=== PATIENT | male | born 1955 | race Caucasian/White ===

== ENCOUNTER 2022-11-17 17:30 | Emergency (ER) | payer MEDICARE ==
--- NOTE | 2022-11-17 17:46 | ED ---
General Adult HPI <Calvin Quan - Last Filed: 11/17/22 17:46> <Sanjana Coto - Last Filed: 11/18/22 03:25> - General Stated complaint: Fall Time Seen by Provider: 11/17/22 17:45 - History of Present Illness Initial comments: 67-year-old male presents to ED with a chief complaint of fall. Patient states she was helping a friend move a dresser when his heel hit in object causing him to lose his balance and fall backwards carrying the dresser. States that he landed on his butt. No head injury at this time. Now notes pain of the hip and buttocks. (Calvin Quan) 67-year-old male presenting with chief complaint of fall. Patient was helping move a dresser when he fell backwards and landed on his buttocks. He is having pain in the lower back. Denies any head injury or loss of consciousness. Shakira hernandez is currently on Plavix. No loss of bowel or bladder control or saddle paresthesia. No numbness, tingling, weakness, vision or hearing changes, neck pain, headache, nausea, vomiting, dizziness. (Sanjana Coto) - Related Data Previous Rx's Medication Instructions Recorded HYDROcodone/APAP 7.5-325MG [[place] 1 tab PO Q6HR PRN 3 Days #12 tab 11/17/22 7.5-325] Allergies Allergy/AdvReac Type Severity Reaction Status Date / Time Iodinated Contrast Media Allergy Rash/Hives Verified 11/17/22 17:46 Review of Systems ROS Other: All systems not noted in ROS Statement are negative. <Calvin Quan - Last Filed: 11/17/22 17:46> ROS Other: All systems not noted in ROS Statement are negative. <Sanjana Coto - Last Filed: 11/18/22 03:25> ROS Statement: Those systems with pertinent positive or pertinent negative responses have been documented in the HPI. Past Medical History Past Medical History: Coronary Artery Disease (CAD), Chest Pain / Angina History of Any Multi-Drug Resistant Organisms: None Reported Additional Past Surgical History / Comment(s): Stents x5 Past Psychological History: No Psychological Hx Reported Smoking Status: Current every day smoker Past Alcohol Use History: None Reported Past Drug Use History: None Reported <Calvin Quan - Last Filed: 11/17/22 17:46> General Exam Limitations: no limitations General appearance: alert Neck exam: Present: normal inspection Extremities exam: Present: normal inspection Neurological exam: Present: alert <Calvin Quan - Last Filed: 11/17/22 17:46> Limitations: no limitations General appearance: alert, in no apparent distress Head exam: Present: atraumatic, normocephalic, normal inspection Eye exam: Present: normal appearance, PERRL, EOMI. Absent: periorbital swelling Neck exam: Present: normal inspection, full ROM. Absent: tenderness Respiratory exam: Present: normal lung sounds bilaterally. Absent: respiratory distress, wheezes, rales, rhonchi, stridor Cardiovascular Exam: Present: regular rate, normal rhythm, normal heart sounds. Absent: systolic murmur, diastolic murmur, rubs, gallop, clicks Back exam: Present: normal inspection Neurological exam: Present: alert, oriented X3 Psychiatric exam: Present: normal affect, normal mood Skin exam: Present: warm, dry, intact, normal color. Absent: rash <Sanjana Coto - Last Filed: 11/18/22 03:25> Course Vital Signs 11/17/22 11/17/22 11/17/22 17:43 20:41 22:11 Temperature 98.0 F 98.4 F Pulse Rate 60 67 75 Respiratory 18 20 20 Rate Blood Pressure 122/68 144/73 168/81 O2 Sat by Pulse 98 99 99 Oximetry Medical Decision Making <Calvin Quan - Last Filed: 11/17/22 17:46> <Sanjana Coto - Last Filed: 11/18/22 03:25> - Medical Decision Making Quicknote portion performed. Signed Calvin Quan PA-C (Calvin Quan) Was pt. sent in by a medical professional or institution ([facility], LINE THERAPIST, urgent care, hospital, or custodial...) When possible be specific @ -No Did you speak to anyone other than the patient for history (EMS, parent, family, police, friend...)? What history was obtained from this source @ -No Did you review nursing and triage notes (agree or disagree)? Why? @ -I reviewed and agree with nursing and triage notes Were old charts reviewed (outside hosp., previous admission, EMS record, old EKG, old radiological studies, urgent care reports/EKG's, custodial records)? Report findings @ -No old charts were reviewed Differential Diagnosis (chest pain, altered mental status, abdominal pain women, abdominal pain men, vaginal bleeding, weakness, fever, dyspnea, syncope, headache, dizziness, GI bleed, back pain, seizure, CVA, palpatations, mental health, musculoskeletal)? @ - MDM Differential Back Pain: Strain, zoster, cauda equina syndrome, epidural abscess, vertebral osteomyelitis, discitis, fracture, subluxation, disc herniation, DJD, spinal stenosis, dissection, AAA, pancreatitis, peptic ulcer disease, pyelonephritis, kidney stone this is not meant to be an all-inclusive list. EKG interpreted by me (3pts min.). @ -As above X-rays interpreted by me (1pt min.). @ -No acute processes seen on x-rays of the lumbar spine, pelvis, or sacrum and coccyx CT interpreted by me (1pt min.). 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 These large bone spurs likely presents onto the back wall of the hypopharynx and cervical esophagus. Correlate for any possible associated clinical symptoms. No acute processes seen on lumbar spine CT U/S interpreted by me (1pt. min.). @ -None done What testing was considered but not performed or refused? (CT, X-rays, U/S, labs)? Why? @ -None What meds were considered but not given or refused? Why? @ -None Did you discuss the management of the patient with other professionals (professionals i.e. , PA, LINE THERAPIST, lab, RT, psych nurse, social work case manager, assistant brand manager, teacher, booking police officer, test case developer)? Give summary @ -No Was smoking cessation discussed for >3mins.? @ -No Was critical care preformed (if so, how long)? @ -No Were there social determinants of health that impacted care today? How? (Homelessness, low income, unemployed, alcoholism, drug addiction, transportation, low edu. Level, literacy, decrease access to med. care, halfway, rehab)? @ -No Was there de-escalation of care discussed even if they declined (Discuss DNR or withdrawal of care, Hospice)? DNR status @ -No What co-morbidities impacted this encounter? (DM, HTN, Smoking, COPD, CAD, Cancer, CVA, ARF, Chemo, Hep., AIDS, mental health diagnosis, sleep apnea, morbid obesity)? @ -None Was patient admitted / discharged? Hospital course, mention meds given and route, prescriptions, significant lab abnormalities, going to OR and other pertinent info. @ -67-year-old male presenting with chief complaint of back pain after fall today. He denies headache injury loss of consciousness, he is currently on Plavix. Physical exam was conducted. Patient is given pain medication. X-rays of the lumbar spine pelvis and sacrum and coccyx are negative. Negative CT of the brain and cervical spine as well as lumbar spine. He reports improvement after pain medication. Educated on supportive management at home. Follow-up with PCP. Report back to ER with any new or worsening symptoms. Discussed return parameters and answered all questions. Patient conveyed verbal understanding and agreed to the plan. I discussed this case in detail with my attending Dr. Gibson Undiagnosed new problem with uncertain prognosis? @ -No Drug Therapy requiring intensive monitoring for toxicity (Heparin, Nitro, Insulin, Cardizem)? @ -No Were any procedures done? @ -No Diagnosis/symptom? @ -Mechanical back pain Acute, or Chronic, or Acute on Chronic? @ -Acute Uncomplicated (without systemic symptoms) or Complicated (systemic symptoms)? @ -Uncomplicated Side effects of treatment? @ -No Exacerbation, Progression, or Severe Exacerbation? @ -No Poses a threat to life or bodily function? How? (Chest pain, USA, IA, pneumonia, PE, COPD, DKA, ARF, appy, cholecystitis, CVA, Diverticulitis, Homicidal, Suicidal, threat to staff... and all critical care pts) @ -No (Sanjana Coto) Disposition <Calvin Quan - Last Filed: 11/17/22 17:46> Is patient prescribed a controlled substance at d/c from ED?: No Time of Disposition: 22:05 <Sanjana Coto - Last Filed: 11/18/22 03:25> Clinical Impression: Fall Disposition: HOME SELF-CARE Condition: Good Instructions (If sedation given, give patient instructions): Fall Prevention for Older Adults (ED), Head Injury (ED) Additional Instructions: Follow-up with PCP. Report back to ER with any new or worsening symptoms. Take medication as prescribed. Prescriptions: HYDROcodone/APAP 7.5-325MG [[place] 7.5-325] 1 tab PO Q6HR PRN 3 Days #12 tab PRN Reason: Pain Referrals: Nonstaff,Physician [Primary Care Provider] - 1-2 days
--- NOTE | 2022-11-17 18:31 | XR ---
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 Vertebral body heights a nd alignment are maintained. Facet arthropathy lower lumbar spine. Pelvis: Hips appear symmetric and intact as do the SI joints and pubic symphysis. Pelvic phleboliths. No acut e fracture, subluxation, or dislocation seen. Sacrum and coccyx: No displaced or angulated sacral or coccygeal fracture seen on the lateral view. S mall delineation to the arcuate lines of the sacrum. Some limitation due to overlying bowel gas. IMPRESSION: 1. Lumbar spine: Extensive DISH throughout the visualized spine. No vertebral compression collapse or malalignment. 2. Pelvis: No acute osseous abnormality seen. 3. Sacrum and coccyx: No displaced or angulated tailbone fracture identified.
[2022-11-17 20:45] VITALS: RESP 20
[2022-11-17] MEDS ORDERED: ORPHENADRINE 30 MG/ML 2 ML VIAL IM STA (20:52)
[2022-11-17] MEDS ORDERED: LIDOCAINE 5% PATCH TOPICAL SCH (21:00)
--- NOTE | 2022-11-17 21:51 | CT ---
EXAMINATION TYPE: CT brain sarahine wo con DATE OF EXAM: 11/17/2022 COMPARISON: None HISTORY: 67-year-old male Fall with neck and lower back pain. CT DLP: 1374.7 mGycm Automated exposure control for dose reduction was used. Technique: Examination of the head was done in axial plane without intravenous contrast. Coronal and sagittal reconstructions performed. CT of the cervical spine was obtained in axial plane without intravenous injection of contrast mater ial. Coronal and sagittal reformatted images were obtained from the axial views for evaluation of f ractures, spinal alignment and canal. FINDINGS: Head: There is no evidence of acute intracranial hemorrhage, acute ischemic changes, mass, mass-effect, or extra-axial fluid collection. There is no effacement of cerebral sulci or basal subarachnoid cister ns. There is no hydrocephalus. There is no midline shift. Cottrell-white matter distinction is preserv ed. Atherosclerotic calcifications in the carotid siphons. Prominent skull base artifact limits assessmen t of the inferior half of the posterior cranial fossa. Trace mucosal thickening maxillary sinuses. Otherwise, paranasal sinuses and mastoid air cells well p neumatized. Orbits and globes are intact. Cerumen within the left external auditory canal. Cervical spine: No craniocervical junction abnormality, predental space widening, or prevertebral soft tissue swellin g. Mild degenerative change C1 dens articulation. There is moderate multilevel spondylotic change but with bulky bridging anterior cervical spine espec ially from C3 through C7 levels. The bulky anterior spurs impress on the posterior wall of the hypoph arynx and cervical esophagus. Correlate for any possible associated clinical symptoms. No evident bony canal compromise is seen. No acute fracture or malalignment of the cervical spine. However, changes contribute to very minimal moderate and moderate to severe neural foraminal stenoses at various levels, for example, C2-C3, C6-C7. Sagittal and coronal reformatted images confirm above findings. COMBINED IMPRESSION: 1. No acute intracranial abnormality seen. 2. 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 These large bone spurs likely pres s onto the back wall of the hypopharynx and cervical esophagus. Correlate for any possible associated clinical symptoms. 3. Otherwise, no acute fracture or malalignment of the cervical spine.
--- NOTE | 2022-11-17 21:54 | CT ---
EXAMINATION TYPE: CT lumbar spine wo con DATE OF EXAM: 11/17/2022 COMPARISON: None HISTORY: 67-year-old male with Fall with neck and lower back pain. TECHNIQUE: Contiguous axial scanning of the lumbar spine without IV contrast. Coronal and sagittal re constructions performed. CT DLP: 819.3 mGycm Automated exposure control for dose reduction was used. FINDINGS: Bony ecchymosis across the SI joints. There is dish in the visualized lower thoracic and lumbar spine. Incompletely bridging endplate spond ylosis L5-S1. Facet arthropathy mid to lower lumbar spine. Vertebral body heights are preserved and a lignment is maintained. Mild posterior disc bulges L2-L3 and L3-L4 does not contribute to any significant spinal canal stenos is. There is very minimal mild bony neural foraminal narrowing on both sides. No high-grade foraminal or canal compromise seen. IMPRESSION: 1. DISH THROUGHOUT THE VISUALIZED LOWER THORACIC AND LUMBAR SPINE. NO VERTEBRAL COMPRESSION COLLAPSE OR MALALIGNMENT. 2. MILD DISC BULGING L2-L3 AND L3-L4 WITHOUT SIGNIFICANT SPINAL CANAL STENOSIS. VARIABLE MILD NEUROFO RAMINAL NARROWING THROUGHOUT.
[2022-11-17] MEDS ORDERED: DEXAMETHASONE SOD PHOSPHATE 10 MG/ML 1 ML VIAL IM STA (22:02)
[2022-11-17 22:17] VITALS: BP 168/81; PULSE 75; TEMP 98.4
== END 2022-11-17 22:15 | disposition home or self-care (01) ==
LOC: EC 17:30
DX: M54.50 Low back pain, unspecified (principal); I25.10 Atherosclerotic heart disease of native coronary artery without angina pectoris; F17.200 Nicotine dependence, unspecified, uncomplicated; Z91.041 Radiographic dye allergy status; W18.00XA Striking against unspecified object with subsequent fall, initial encounter
CPT/HCPCS: 99284 ×2; 96372 ×3; 72100; 72170; 72220; 72125; 72131; 70450; J1100; J2360